=== PATIENT | female | born 1990 | race African-American/Black ===

== ENCOUNTER 2021-04-25 09:49 | Emergency (ER) | payer MEDICAID ==
[~2021-04-25] VITALS: Ht 170.2 cm; Wt 100.0 kg
[2021-04-25] MEDS ORDERED: TORADOL PO (11:57)
[2021-04-25] MEDS ORDERED: FLEXERIL5 M1 PO (11:57)
[2021-04-25 12:00] VITALS: BP 129/79
== END 2021-04-25 12:00 | disposition home or self-care (01) ==
LOC: ED 09:49
DX: M25.512 Pain in left shoulder (principal)